=== PATIENT | male | born 1945 | race Two or more races ===

== ENCOUNTER 2016-07-14 23:16 | Emergency (ER) | payer OTHER ==
[~2016-07-14] VITALS: Ht 167.6 cm; Wt 92.1 kg
[2016-07-15 00:55] LABS: Basophils # (auto) 0.1 uL; Basophils % (auto) 0.7 % (0.0-2.0); Eosinophils # (auto) 0.1 uL; Eosinophils % (auto) 1.4 % (0.0-7.0); Hematocrit 44.2 % (41.0-53.0); Hemoglobin 14.4 g/dL (13.5-17.5); Lymphocytes # (auto) 1.9 uL; Lymphocytes % (auto) 19.6 % (10.0-50.0); Mean Corpuscular Hemoglobin 30.4 pg (28.0-32.0); Mean Corpuscular Hgb Conc. 32.5 g/dL (32.0-36.0); Mean Corpuscular Volume 93.4 fL (80.0-100.0); Mean Platelet Volume 9.9 fL (7.4-10.4); Monocytes % (auto) 10.6 % (0.0-12.0); Neutrophils # (auto) 6.4 uL; Neutrophils % (auto) 67.7 % (37.0-80.0); Platelet Count (auto) 195 10^3/uL (140-450); Red Cell Distribution Width 11.9 % (11.6-16.0); White Blood Cell 9.5 10^3/uL (4.4-10.8)
[2016-07-15 01:05] LABS: INR 1.1 (0.9-1.15); Partial Thromboplastin Time 26.6 sec (22.64-33.71); Prothrombin Time 11.3 sec (9.37-12.3)
[2016-07-15 01:18] LABS: B-Type Natriuretic Peptide 42.5 pg/mL (0-100)
[2016-07-15 01:19] LABS: Temperature: 21.6 C (20.0-25.0)
[2016-07-15] MEDS ORDERED: MORPHINE SULFATE 4 MG/ML SYRG IV ONE (01:30)
[2016-07-15] MEDS ORDERED: ONDANSETRON HCL 4 MG/2 ML VIAL IV ONE (01:30)
[2016-07-15 01:33] LABS: Albumin 3.8 g/dL (3.4-5.0); Calcium 8.2 mg/dL (8.5-10.1); Potassium 3.6 mmol/L (3.5-5.1)
[2016-07-15 01:35] LABS: Bilirubin, Total 0.6 mg/dL (0.2-1.0)
[2016-07-15 03:19] VITALS: BP 152/80
== END 2016-07-15 03:54 | disposition home or self-care (01) ==
LOC: ER 23:21
DX: M54.14 Radiculopathy, thoracic region (principal); M54.6 Pain in thoracic spine; M48.04 Spinal stenosis, thoracic region; M48.02 Spinal stenosis, cervical region; M54.12 Radiculopathy, cervical region; F17.210 Nicotine dependence, cigarettes, uncomplicated; R07.89 Other chest pain
CPT/HCPCS: 36415; 71010; 72125; 72128; 80053; 83880; 84443; 84484; 85025; 85049; 85610; 85730; 93005; 96374; 96375; 99285; J2270; J2405